=== PATIENT | female | born 1990 ===

== ENCOUNTER → 2020-09-24 | Outpatient (CLI) | payer OTHER ==
--- NOTE | 2020-09-24 13:08 | RAD ---
EXAM: OB ULTRASOUND, > 14 WEEKS HISTORY: Size and dates discrepancy. COMPARISON: None. TECHNIQUE: Multiple grayscale images, color Doppler, and M-mode images of the uterus are obtained. FINDINGS: There is a single intrauterine gestation in breech presentation. The placenta is anterior in location without evidence of placenta previa. The amount of amniotic fluid appears appropriate. Amniotic flu id index is 12.1 cm. Cervical length is 4.5 cm. Biometrical data: BPD = 5.88 cm for 24 weeks 0 days. HC = 21.73 cm for 23 weeks 5 days. AC = 19.85 cm for 24 weeks 4 days. FL = 4.19 cm for 23 weeks 4 days. HC/AC ratio = 1.09. Overall, the estimated sonographic gestational age is 24 weeks and 0 days for an estimated date of de livery of 01/14/2021. The estimated date of delivery provided by the last menstrual period is 01/06/20 21. Estimated weight is 660 grams. This corresponds with the 29th percentile for a gestational age of 25 weeks and 2 days based on LMP. A 4 chamber heart is identified with positive cardiac activity. The estimated heart rate is 155 beats per minute. Bilateral upper and lower extremities are identified. There is a three-vessel cord with cord insertion visualized. stomach and urinary bladder are identified. Both kidneys are seen. The spine and brain are unremarkable. No obvious anatomic abnormalities are identified. The maternal adnexal regions are unremarkable. IMPRESSION: 1. Single imaging fetus in breech presentation with normal heart rate and gestational age based on ul trasound measurements of 24 weeks and 0 days. The estimated weight is at the 29th percentile fo r a gestational age of 25 weeks and 2 days based on LMP. 2. Unremarkable anatomy survey. Electronically signed by: pAurva Donahue MD (09/24/2020 1:06 PM) [id number]
== END ==
LOC: US 12:02
PROVIDERS: ATTEND Obstetrics & Gynecology
DX: O26.843 Uterine size-date discrepancy, third trimester (principal); O32.1XX0 Maternal care for breech presentation, not applicable or unspecified; Z3A.24 24 weeks gestation of pregnancy
CPT/HCPCS: 76805